=== PATIENT | female | born 1985 | race Two or more races ===

== ENCOUNTER 2020-12-13 11:26 | Outpatient (CLI) | payer OTHER | END 2020-12-13 11:34 | disposition home or self-care (01) | LOC: MAMO-SONO 11:26 | PROVIDERS: ATTEND Specialist | DX: Z12.31 Encounter for screening mammogram for malignant neoplasm of breast (principal); N64.59 Other signs and symptoms in breast; R92.0 Mammographic microcalcification found on diagnostic imaging of breast ==

== ENCOUNTER → 2021-03-16 | Outpatient (CLI) | payer OTHER | END | disposition home or self-care (01) | LOC: EDBD 11:53 → PRENATAL 11:53 | PROVIDERS: ATTEND Obstetrics & Gynecology Maternal & Fetal Medicine | DX: O26.851 Spotting complicating pregnancy, first trimester (principal); O36.80X1 Pregnancy with inconclusive fetal viability, fetus 1; O09.511 Supervision of elderly primigravida, first trimester; Z36.89 Encounter for other specified antenatal screening; Z3A.08 8 weeks gestation of pregnancy ==

== ENCOUNTER 2021-03-17 06:30 | Day surgery (SDC) | payer OTHER | END 2021-03-17 14:15 | disposition home or self-care (01) | LOC: CIR.AMB 06:30 | PROVIDERS: ATTEND Specialist | DX: O02.1 Missed abortion (principal); Z20.822 Contact with and (suspected) exposure to COVID-19 ==

== ENCOUNTER 2021-12-11 09:21 | Outpatient (CLI) | payer OTHER | END 2021-12-11 10:29 | disposition home or self-care (01) | LOC: PRENATAL 09:21 | PROVIDERS: ATTEND Obstetrics & Gynecology Maternal & Fetal Medicine | DX: O35.0XX1 Maternal care for (suspected) central nervous system malformation in fetus, fetus 1 (principal); O35.3XX1 Maternal care for (suspected) damage to fetus from viral disease in mother, fetus 1; O98.512 Other viral diseases complicating pregnancy, second trimester; O26.852 Spotting complicating pregnancy, second trimester; Z36.89 Encounter for other specified antenatal screening; Z3A.22 22 weeks gestation of pregnancy ==

== ENCOUNTER 2022-03-27 12:00 | Inpatient (IN) | payer OTHER ==
[~2022-03-27] VITALS: Ht 160 cm; Wt 3.2 kg
[2022-03-27] MEDS ORDERED: PRENATABS FA T1 EACH PO (13:15)
[2022-03-27] MEDS ORDERED: INTEGRA PLUS C1 EACH PO (13:16)
== END 2022-04-08 13:53 | disposition home or self-care (01) | DRG 788 ==
LOC: O/R 04-06 06:00 → LDR 04-06 08:45 → SURG-SUITE 04-06 12:48
PROVIDERS: ADMIT Specialist; ATTEND Specialist
PROC: 4A1HXCZ Monitoring of Products of Conception, Cardiac Rate, External Approach (ICD-10-PCS; 2022-04-06)
PROC: 10D00Z1 Extraction of Products of Conception, Low, Open Approach (ICD-10-PCS; principal; 2022-04-06 08:45)
DX: O32.2XX0 Maternal care for transverse and oblique lie, not applicable or unspecified (principal); Z3A.39 39 weeks gestation of pregnancy; Z37.0 Single live birth; Z20.822 Contact with and (suspected) exposure to COVID-19